=== PATIENT | male | born 1995 | race Two or more races ===

== ENCOUNTER 2020-11-19 06:00 | Emergency (ER) | payer MEDICAID, OTHER ==
[~2020-11-19] VITALS: Ht 188 cm; Wt 95.3 kg
[2020-11-19 06:02] VITALS: BP 136/85
== END 2020-11-19 07:58 | disposition left against medical advice (07) ==
LOC: EDBD 06:00 → ER 06:00
DX: M70.22 Olecranon bursitis, left elbow (principal); F12.10 Cannabis abuse, uncomplicated; V43.52XA Car driver injured in collision with other type car in traffic accident, initial encounter; Y93.89 Activity, other specified; Y92.488 Other paved roadways as the place of occurrence of the external cause; Y99.8 Other external cause status